=== PATIENT | male | born 1950 | race Asian ===

== ENCOUNTER 2022-09-22 08:50 | Emergency (ER) | payer BC ==
[~2022-09-22] VITALS: Ht 175.3 cm; Wt 56.7 kg
[2022-09-22 08:59] VITALS: BP_SYST 126; PULSE 106; RESP 17; TEMP 98.3; O2SAT 94
[2022-09-22 09:38] LABS: BASOPHILS # (AUTO) 0.1 K/uL (0.0-0.2); BASOPHILS % (AUTO) 0.6 % (0.0-2.0); EOSINOPHILS # (AUTO) 0.7 K/uL (0.0-0.4); HEMATOCRIT 41.9 % (36-54); HEMOGLOBIN 13.8 g/dL (14.0-18.0); LYMPHOCYTES # (AUTO) 0.8 K/uL (1.0-5.5); MEAN CORPUSCULAR HEMOGLOBIN 31 pg (27-31); MEAN CORPUSCULAR HGB CONC 33 % (32-36); MEAN CORPUSCULAR VOLUME 93 fL (79.0-98.0); MONOCYTES # (AUTO) 0.9 K/uL (0.0-1.0); MONOCYTES % (AUTO) 8.4 % (1.7-9.3); NEUTROPHILS # (AUTO) 8.5 K/uL (1.8-7.7); PLATELET COUNT (AUTO) 551 K/uL (130-430); RED BLOOD CELL COUNT(AUTO) 4.51 MIL/uL (4.2-6.2); RED CELL DISTRIBUTION WIDTH 12.6 % (9.0-15.0); WHITE BLOOD COUNT (AUTO) 10.8 K/uL (4.8-10.8)
[2022-09-22 09:55] LABS: ANION GAP 8 (5-15); CALCIUM 8.1 mg/dL (8.4-11.0); CHLORIDE 101 mmol/L (98-107); GLUCOSE 104 mg/dL (74-106); UREA NITROGEN, BLOOD 6 mg/dL (8-21)
[2022-09-22 10:02] LABS: ALANINE AMINOTRANSFERASE 29 U/L (12-78); ALBUMIN 2.2 g/dL (3.4-4.8); ASPARTATE AMINOTRANSFERASE 26 U/L (10-37); TOTAL BILIRUBIN 0.4 mg/dL (0.0-1.0)
[2022-09-22 10:30] VITALS: TEMP 98.3
[2022-09-22] MEDS ORDERED: ALPR0.25 PO ×2 (11:33→12:27)
[2022-09-22 11:55] VITALS: BP_SYST 125; PULSE 90; RESP 15; O2SAT 92
== END 2022-09-22 11:55 | disposition home or self-care (01) ==
LOC: SED 08:50
DX: J18.9 Pneumonia, unspecified organism (principal); R51.9 Headache, unspecified; R07.9 Chest pain, unspecified; R05.9 Cough, unspecified; Z79.899 Other long term (current) drug therapy
CPT/HCPCS: 36415; 70450-TC; 71045; 76376; 80053; 83605; 84484; 85025; 93005; 99285

== ENCOUNTER 2022-09-26 10:26 | Emergency (ER) | payer BC ==
[~2022-09-26] VITALS: Ht 154.9 cm; Wt 68.9 kg
[~2022-09-26 10:26] MED LIST: ALPR0.25 PO
[2022-09-26 10:38] VITALS: BP_SYST 122; PULSE 93; RESP 22; TEMP 97.9; O2SAT 92
[2022-09-26 11:18] LABS: ANION GAP 10 (5-15); CALCIUM 7.9 mg/dL (8.4-11.0); CHLORIDE 95 mmol/L (98-107); CREATININE 0.69 mg/dL (0.55-1.30); GLUCOSE 120 mg/dL (74-106); UREA NITROGEN, BLOOD 8 mg/dL (8-21)
[2022-09-26 11:38] LABS: BASOPHILS % (AUTO) 0.3 % (0.0-2.0); EOSINOPHILS # (AUTO) 0.6 K/uL (0.0-0.4); EOSINOPHILS % (AUTO) 4.3 % (0.0-4.0); HEMATOCRIT 38.5 % (36-54); HEMOGLOBIN 12.7 g/dL (14.0-18.0); LYMPHOCYTES # (AUTO) 0.7 K/uL (1.0-5.5); LYMPHOCYTES % (AUTO) 5.6 % (20.5-51.5); MEAN CORPUSCULAR HEMOGLOBIN 30 pg (27-31); MEAN CORPUSCULAR HGB CONC 33 % (32-36); MEAN CORPUSCULAR VOLUME 92 fL (79.0-98.0); MONOCYTES # (AUTO) 1.4 K/uL (0.0-1.0); MONOCYTES % (AUTO) 10.7 % (1.7-9.3); NEUTROPHILS # (AUTO) 10.5 K/uL (1.8-7.7); NEUTROPHILS % (AUTO) 79.1 % (40.0-70.0); PLATELET COUNT (AUTO) 608 K/uL (130-430); WHITE BLOOD COUNT (AUTO) 13.3 K/uL (4.8-10.8)
[2022-09-26 11:52] LABS: ALANINE AMINOTRANSFERASE 30 U/L (12-78); ASPARTATE AMINOTRANSFERASE 26 U/L (10-37); TOTAL BILIRUBIN 0.4 mg/dL (0.0-1.0)
[2022-09-26] MEDS ORDERED: OMEPRAZOLE Non-Formulary 20 MG CAPSULE.DR PO ONE (12:45)
[2022-09-26] MEDS ORDERED: PANTOPRAZOLE SODIUM 40 MG TAB PO ONE (13:00)
[2022-09-26 16:01] VITALS: BP_SYST 135; PULSE 74; RESP 17; TEMP 97.3; O2SAT 95
== END 2022-09-26 16:02 | disposition still patient (30) ==
LOC: SED 10:26
DX: J18.9 Pneumonia, unspecified organism (principal); R05.9 Cough, unspecified; R06.02 Shortness of breath; Z79.899 Other long term (current) drug therapy; Z20.822 Contact with and (suspected) exposure to COVID-19
CPT/HCPCS: 36415; 71045; 80053; 83605; 83880; 84484; 85025; 87040; 93005; 99285